=== PATIENT | female | born 1940 | race Caucasian/White ===

== ENCOUNTER → 2021-05-18 13:52 | Outpatient (CLI) | payer MEDICARE, OTHER, SELFPAY ==
--- NOTE | 2021-05-18 14:32 | DI.MRI.S_ITS ---
PROCEDURE: MR LUMBAR SPINE WO CON INDICATIONS: LOW BACK PAIN TECHNIQUE: Noncontrast sagittal T1 spin echo and T2 fast echo, sagittal STIR, axial T1 and T2 fast spin echo through the lumbar spine. In cases with scoliosis, additional coronal T2 fast spin echo may be performed. COMPARISON: [facility], CR, XR LUMBAR SPINE 2 OR 3 VIEWS, 05/18/2020, 13:03. [facility], CR, XR LUMBAR SPINE 2 OR 3 VIEWS, 05/04/2021, 9:54. FINDINGS: Image quality: Excellent. Alignment and Curvature: Convex right thoracolumbar scoliosis noted. Bone Marrow: There is a wedge-shaped T12 compression fracture with 70% anterior height loss and internal marrow edema. No retropulsed fracture fragment results in [id number] central canal stenosis without impression on the cord. Degenerative endplate changes noted at L2-3. Spinal Cord: Conus medullaris terminates at the L1 level. Visualized cord demonstrates normal signal and size. Paraspinous Soft Tissues: No paravertebral masses. T12-L1: Moderate disc space narrowing with retropulsed fracture fragment resulting in mild to moderate central canal stenosis. No cord indentation or compression. Both foramina widely patent. L1-L2: Moderate disc space narrowing with circumferential disc bulge results in mild central stenosis. No foraminal stenosis. L2-L3: Severe disc space narrowing and circumferential disc bulge results in mild central stenosis. Mild hypertrophic facet joints results in mild bilateral foraminal stenosis. L3-L4: Moderate disc space narrowing with circumferential disc bulge and hypertrophic facet joints present. No central or foraminal stenosis. L4-L5: Moderate disc space narrowing with circumferential disc bulge and hypertrophic facet joints. No central stenosis. Mild bilateral foraminal stenosis present. L5-S1: Disc space narrowing with circumferential disc bulge and small central protrusion measuring 2-3 mm without central stenosis. Moderate bilateral foraminal stenosis. IMPRESSION: 1. Subacute wedge-shaped 70% T12 compression fracture with retropulsed fracture fragment. Mild to moderate central stenosis at T12-L1 without cord deformation. T12 would be amendable percutaneous vertebroplasty treatment if clinically warranted. 2. Multilevel degenerative disc disease and arthropathy results in moderate bilateral L5-S1 foraminal stenosis. Approved by: Estuardo Tom M.D. on 05/18/2021 at 15:35
== END ==
PROVIDERS: Family Provider Internal Medicine; PCP Internal Medicine; Referring Provider Physical Medicine & Rehabilitation; Visit Provider Physical Medicine & Rehabilitation
DX: M48.54XA Collapsed vertebra, not elsewhere classified, thoracic region, initial encounter for fracture (principal); M54.5 Low back pain; M48.05 Spinal stenosis, thoracolumbar region; M48.07 Spinal stenosis, lumbosacral region; M51.37 Other intervertebral disc degeneration, lumbosacral region; M51.36 Other intervertebral disc degeneration, lumbar region; M47.816 Spondylosis without myelopathy or radiculopathy, lumbar region; M41.85 Other forms of scoliosis, thoracolumbar region
CPT/HCPCS: 72148

== ENCOUNTER 2022-12-19 08:17 | Day surgery (SDC) | payer MEDICARE, OTHER, SELFPAY ==
--- NOTE | 2022-12-19 | PATH_ITS ---
[facility] Accession Number: [id number] No. of containers..01 Tissue . 01 Material submitted: . esophagus - DISTAL ESOPHAGUS BIOPSY . 01 Clinical history: . RULE OUT EOE . 01 Diagnosis: A. Esophagus, Distal, Biopsy: Squamous mucosa with glycogenic acanthosis. No evidence of eosinophilic esophagitis. Negative for fungal organisms on PAS special stain. Negative for intestinal metaplasia and dysplasia. [facility] 12/25/2022 1207 Local . 01 Electronically signed: . Rissa Dupont MD, Pathologist NPI- [id number] . 01 Gross description: . DISTAL ESOPHAGUS BIOPSY: Received in formalin are 2 fragment(s) of alvarez, soft tissue measuring 0.4 x 0.4 x 0.1 cm to 0.2 x 0.2 x 0.1 cm submitted entirely in 1 cassette(s) /[facility] 12/20/2022 1533 Local . 01 Microscopic: . PAS special stain is performed on block A, with appropriately staining external control, and is negative for fungal organisms. . 01 Pathologist provided ICD-10: R13.10 . 01 CPT . 686897, 121551 Specimen Comment: A courtesy copy of this report has been sent to [phone] Performed at: 01 [facility] [address] [place] [address] [address], [place], [place] [id number] MD Donn Peraza MD Phone: [phone]
--- NOTE | 2022-12-19 08:24 | P.OP.EGD_ITS ---
Operative Date/Time/Diagnoses Date of procedure: 12/19/22 Procedure & Clinicians Study performed: EGD Indications: Dysphagia Surgeon: Pallavi Joseph Procedure Notes Procedure in detail: After informed consent was obtained the patient was placed in left lateral decubitus position. The video upper scope was placed into the oropharynx and w ith the patient's help swallowed into the esophagus. The esophagus stomach and duodenum were carefully examined. On withdrawal, retroflexed view the GE junction was performed. Scope was removed. The patient tolerated procedure well. Blood loss none Complications none Sedation mac Findings 1.
[2022-12-19] MEDS: LACTATED RINGERS 1,000 ML 100 ML IV (08:34)
[2022-12-19 08:47] VITALS: BP 175/77; PULSE 85; RESP 16; TEMP 37.1; O2SAT 95; BMI 28.3
--- NOTE | 2022-12-19 09:05 | PM.OP.EGD ---
Operative Date/Time/Diagnoses Date of procedure: 12/19/22 Pre-op diagnosis: See indication and findings Procedure & Clinicians Study performed: EGD Indications: Suprasternal notch dysphagia Surgeon: Pallavi Joseph Procedure Notes Procedure in detail: After informed consent was obtained the patient was placed in the left lateral decubitus position. The video upper scope was placed into the oropharynx and with the patient's help swelled into the esophagus. The esophagus stomach and duodenum were carefully examined. On withdrawal, retroflexed view the GE junction was performed. The scope was removed. The patient tolerated procedure well. Blood loss none Complications none Sedation mac Findings 1. Normal esophagus. Biopsies taken x2 to rule out eosinophilic esophagitis 2. Normal stomach 3. Normal duodenal bulb and sweep We will merely await biopsies before deciding on next steps which will probably include imaging. Patient may go back on her Eliquis this evening
--- NOTE | 2022-12-19 09:08 | P.HP_ITS ---
History of Present Illness History of Present Illness Date Patient Seen: 12/19/22 Chief complaint: EGD Narrative: Dysphagia at the suprasternal notch [facility] Surgical History (Updated 12/17/17 @ 06:06 by Conversion Provider) History of tonsillectomy Status post breast biopsy Status post breast biopsy Social History household members: none Smoking Status: Former smoker alcohol intake: current Meds Home Medications and Allergies Home Medications Medication Instructions Recorded Confirmed Type fluoxetine 40 mg capsule 40 mg PO QAM ##0 10/22/17 12/19/22 History losartan 50 mg tablet 50 mg PO BID ##0 10/22/17 12/19/22 History acetaminophen 325 mg tablet 0 mg PO Q4HP PRN ##30 11/19/17 12/19/22 Rx alprazolam 0.25 mg tablet 0.25 mg PO BIDP PRN ##30 11/19/17 12/19/22 Rx metoprolol succinate 50 mg 50 mg PO BID 12/19/22 12/19/22 History tablet,extended release 24 hr Allergies Allergy/AdvReac Type Severity Reaction Status Date / Time No Known Drug Allergies Allergy Verified 12/19/22 08:06 Exam Vital Signs (past 8 hours): - 12/19/22 08:47 Temperature 98.8 F Pulse Rate 85 Respiratory Rate 16 Blood Pressure 175/77 H Pulse Oximetry 95 Oxygen Delivery Method Room Air Oxygen Delivery Method Room Air Narrative Exam Narrative: Oropharynx free of lesions Chest clear to auscultation percussion Cardiac exam reveals no S3 or murmur Assessment & Plan Assessment & Plan narrative: Dysphagia at the suprasternal notch need to rule out mechanical lesion versus inflammatory disease. Risks, benefits, alternatives have been explained
[2022-12-19 09:29] VITALS: BP 122/64; BP 134/74; PULSE 74; PULSE 81; RESP 16; RESP 19; TEMP 36.6; O2SAT 94; O2SAT 97
[2022-12-19 09:39] VITALS: BP 127/66; PULSE 71; RESP 17; TEMP 36.8; O2SAT 97
[2022-12-19 09:49] VITALS: BP 142/66; PULSE 88; RESP 18; O2SAT 96
== END 2022-12-19 09:58 | disposition home or self-care (01) ==
PROVIDERS: Family Provider Internal Medicine; PCP Internal Medicine; Referring Provider Internal Medicine Gastroenterology; Visit Provider Internal Medicine Gastroenterology
PROC: 0DJ08ZZ Inspection of Upper Intestinal Tract, Via Natural or Artificial Opening Endoscopic (ICD-10-PCS; CPT 43235; principal; 2022-12-19 09:30)
DX: R13.19 Other dysphagia (principal); K22.89 Other specified disease of esophagus
CPT/HCPCS: 43239; J2704

== ENCOUNTER → 2023-03-13 10:52 | Outpatient (CLI) | payer MEDICARE, OTHER, SELFPAY ==
--- NOTE | 2023-03-13 | DI.RAD.S_ITS ---
PROCEDURE: FL BARIUM SWALLOW INDICATIONS: Dysphagia, unspecified COMPARISON: None. FINDINGS: Function: There is esophageal dysmotility with pooling of contrast within the distal esophagus and tertiary contractions. No elicited gastroesophageal reflux. The barium tablet lodged in the distal esophagus at GE junction and did not pass. Morphology: Air-contrast images demonstrate normal mucosal morphology. Single contrast views show no esophageal strictures, extrinsic mass effects, or diverticula. Limited images of the stomach demonstrate normal appearance. IMPRESSION: Esophageal dysmotility with pooling of contrast in the distal esophagus and tertiary contractions. No gastroesophageal reflux. The barium tablet lodged in the distal esophagus at the GE junction and did not pass. Dictated by: Ashu Sequeira M.D. on 03/13/2023 at 11:55 Approved by: Ashu Sequeira M.D. on 03/13/2023 at 11:58
== END ==
PROVIDERS: Family Provider Internal Medicine; PCP Internal Medicine; Referring Provider Internal Medicine Gastroenterology; Visit Provider Internal Medicine Gastroenterology
DX: R13.10 Dysphagia, unspecified (principal); K22.4 Dyskinesia of esophagus
CPT/HCPCS: 74220

== ENCOUNTER 2023-04-03 10:01 | Day surgery (SDC) | payer MEDICARE, OTHER, SELFPAY ==
[2023-04-03 10:29] VITALS: BMI 29.2
--- NOTE | 2023-04-03 10:30 | P.HP_ITS ---
History of Present Illness History of Present Illness Chief complaint: EGD Narrative: Substernal dysphagia with barium swallow showing hang up of contrast and barium coated pill at the GE junction. Need need for evaluation and possible dilation. [facility] Surgical History (Updated 12/17/17 @ 06:06 by Conversion Provider) History of tonsillectomy Status post breast biopsy Status post breast biopsy Social History household members: none Smoking Status: Former smoker alcohol intake: current Meds Home Medications and Allergies Home Medications Medication Instructions Recorded Confirmed Type acetaminophen 325 mg tablet 0 mg PO Q4HP PRN ##30 11/19/17 04/03/23 Rx metoprolol succinate 50 mg 50 mg PO BID 12/19/22 04/03/23 History tablet,extended release 24 hr alprazolam 0.25 mg tablet 0.25 mg PO BIDP PRN Anxiety 04/03/23 04/03/23 History apixaban 5 mg tablet (Eliquis) 5 mg PO BID 04/03/23 04/03/23 History bupropion HCl 150 mg tablet,12 hr 150 mg PO BID 04/03/23 04/03/23 History sustained-release diltiazem HCl 180 mg 180 mg PO BID 04/03/23 04/03/23 History capsule,extended release 24 hr, controlled valsartan 80 mg tablet 80 mg PO BID 04/03/23 04/03/23 History zolpidem 10 mg tablet 10 mg PO ONCE PM PRN Insomnia 04/03/23 04/03/23 History Allergies Allergy/AdvReac Type Severity Reaction Status Date / Time Axznytd-VPL-AdH Reductase Allergy Severe Cramping Verified 04/03/23 10:23 Inhibitor of the Muscles Exam Narrative Exam Narrative: Oropharynx free of lesions Chest clear to auscultation percussion Cardiac exam reveals no S3 or murmur Assessment & Plan Assessment & Plan narrative: Substernal dysphagia and abnormal barium swallow need to evaluate and possible dilation. Risks benefits alternatives have been explained.
--- NOTE | 2023-04-03 10:39 | PM.OP.EGD ---
Operative Date/Time/Diagnoses Date of procedure: 04/03/23 Pre-op diagnosis: See indication and findings Procedure & Clinicians Study performed: EGD Indications: Substernal dysphagia and abnormal barium swallow Surgeon: Pallavi Joseph Procedure Notes Procedure in detail: After informed consent was obtained the patient was placed in left lateral decubitus position. The video upper scope was placed into the oropharynx and with the patient's help swelled into the esophagus. The esophagus stomach and duodenum were carefully examined. On withdrawal, retroflexed view the GE junction was performed. The scope was removed. The patient tolerated procedure well. Blood loss none Complications none Sedation mac Findings 1. Normal mid to proximal esophagus 2. GE junction now appreciated to be relatively tight. Scope was able to be passed however. Careful evaluation proximal and distally revealed no lesion. Empiric dilation was done to [address] without difficulty 3. Normal stomach 4. Normal duodenal bulb and sweep Malini should call me in 1-2 weeks let me know how she is doing. Esophageal motility study may be necessary to rule out achalasia versus a less specific motility disorder. She may restart her Galo iraheta
[2023-04-03 10:44] VITALS: BP 182/87; PULSE 86; RESP 18; TEMP 36.4; O2SAT 99
[2023-04-03] MEDS: LACTATED RINGERS 1,000 ML 100 ML IV (10:51)
[2023-04-03 11:46] VITALS: BP 141/71; PULSE 78; RESP 22; TEMP 36.4; O2SAT 96
[2023-04-03 11:52] VITALS: BP 96/68; PULSE 67; RESP 21; O2SAT 97
[2023-04-03 11:56] VITALS: BP 132/68; PULSE 80; RESP 20; O2SAT 97
[2023-04-03 12:02] VITALS: BP 149/96; PULSE 85; RESP 18; O2SAT 96
== END 2023-04-03 12:21 | disposition home or self-care (01) ==
PROVIDERS: Family Provider Internal Medicine; PCP Internal Medicine; Referring Provider Internal Medicine Gastroenterology; Visit Provider Internal Medicine Gastroenterology
PROC: 0DJ08ZZ Inspection of Upper Intestinal Tract, Via Natural or Artificial Opening Endoscopic (ICD-10-PCS; CPT 43235; principal; 2023-04-03 11:30)
DX: R13.19 Other dysphagia (principal)
CPT/HCPCS: 43248; J2704